=== PATIENT | male | born 1955 ===

== ENCOUNTER 2023-11-12 09:13 | Outpatient (CLI) | payer OTHER | END 2023-11-12 09:14 | disposition home or self-care (01) | LOC: LAB 09:13 | PROVIDERS: ATTEND Urology | DX: R97.20 Elevated prostate specific antigen [PSA] (principal) ==

== ENCOUNTER 2023-11-20 07:12 | Outpatient (CLI) | payer OTHER | END 2023-11-20 07:15 | disposition home or self-care (01) | LOC: SONOGRAMA 07:12 | PROVIDERS: ATTEND Urology | DX: C61 Malignant neoplasm of prostate (principal); N40.1 Benign prostatic hyperplasia with lower urinary tract symptoms; R97.20 Elevated prostate specific antigen [PSA] ==

== ENCOUNTER 2024-03-23 07:45 | Inpatient (IN) | payer OTHER ==
[~2024-03-23] VITALS: Ht 172.7 cm; Wt 74.8 kg
[2024-03-23 08:49] LABS: HEMATOCRIT 46.1 % (39.0-48.0); MEAN CELL VOLUME 85.8 fL (80.0-100.00); MEAN CORPUSCULAR HEMOGLOBIN 29.8 pg (27.00-32.0); MEAN CORPUSCULAR HGB CONC 34.7 g/dl (32.0-36.0); PLATELET COUNT 309 K/uL (150-450); RED BLOOD COUNT 5.37 M/uL (4.00-6.00); RED CELL DISTRIBUTION WIDTH 14.5 % (11.5-14.5)
[2024-03-23] MEDS ORDERED: LOSARTAN POTASS50 MG PO (09:01)
[2024-03-23] MEDS ORDERED: ZOCOR20 MG PO (09:01)
[2024-03-23] MEDS ORDERED: XANAX1 MG PO (09:01)
[2024-03-23] MEDS ORDERED: TAMS0.4C PO (09:02)
[2024-03-23] MEDS ORDERED: LEXAPRO5 MG PO (09:03)
[2024-03-23 09:04] VITALS: BP 116/73
[2024-03-23 09:08] LABS: PH,URINE 5.5 (5.0-8.0); URINE APPEARANCE Clear; URINE BILIRRUBIN Negative (NEGATIVE); URINE BLOOD Negative; URINE COLOR Yellow; URINE GLUCOSE Negative (NEGATIVE); URINE KETONE Trace (NEGATIVE); URINE LEUKOCYTE Negative; URINE NITRATE Negative; URINE PROTEIN Negative (NEGATIVE); URINE UROBILINOGEN 0.2 E.U./dl
[2024-03-23 09:19] LABS: URINE BACTERIA 4.8 uL (0.0-1933); URINE EPITHELIAL CELLS 4.4 uL (0.0-38.8); URINE RBC 4.5 uL (0.0-20.8); URINE WBC 2.6 uL (0.0-23.2)
[2024-03-23 09:25] LABS: URINE CAST 0.29 uL (0.0-1.40)
[2024-03-23 09:29] LABS: INR 1.02; PARTIAL THROMBOPLASTIN TIME 28.9 SECONDS (22.0-34.0); PROTHROMBIN TIME 11.1 SECONDS (9.0-11.5)
[2024-03-23 09:49] LABS: CALCIUM 9.7 mg/dL (8.5-10.1); CREATININE SERUM 1.19 mg/dL (0.70-1.30); GFR 60.61; POTASSIUM 4.94 mEq/L (3.5-5.1)
[2024-03-23 11:39] VITALS: BP 106/67
[2024-03-23 12:45] LABS: RH POSITIVE
[2024-03-25] MEDS ORDERED: ESCITALOPRAM OX10 MG (10:32)
[2024-03-25] MEDS ORDERED: ESTAZOLAM2 MG (10:32)
[2024-03-25] MEDS ORDERED: DICLOFENAC POTA50 MG (10:32)
[2024-03-25] MEDS ORDERED: CIPROFLOXACIN IN 5 % DEXTROSE 400 MG/200 ML PIGGYBAG IV ONE (11:45)
[2024-03-25] MEDS ORDERED: ENOXAPARIN SODIUM 40 MG/0.4 ML SYRINGE SUBCUTANEO ONE (11:45)
[2024-03-25] MEDS ORDERED: SURGIFLO APPLICATOR 1 EACH APPL TOP ONE (13:19)
[2024-03-25] MEDS ORDERED: HEMOSTATIC MATRIX 1 KIT KIT TOP ONE (13:19)
[2024-03-25] MEDS ORDERED: SUGAMMADEX SODIUM 200 MG/2 ML VIAL IV ONE (15:01)
[2024-03-25] MEDS ORDERED: DEXTROSE 5 % AND 0.9 % NACL 1,000 ML IV SCH (15:40)
[2024-03-25] MEDS ORDERED: MORPHINE SULFATE 2 MG/ML CARTRIDGE IV PRN (15:45)
[2024-03-25] MEDS ORDERED: ONDANSETRON HCL 2 MG/ML VIAL IV PRN (15:45)
[2024-03-25] MEDS ORDERED: MORPHINE SULFATE 4 MG/ML VIAL IV ONE ×2 (15:50→16:20)
[2024-03-25] MEDS ORDERED: FAMOtidine 20 MG TABLET PO SCH (17:00)
[2024-03-25] MEDS ORDERED: DOCUSATE SODIUM 100MG CAP PO SCH (17:00)
[2024-03-25] MEDS ORDERED: SIMETHICONE 125 MG CAPSULE PO SCH (17:00)
[2024-03-25 18:00] LABS: HEMATOCRIT 36.6 % (39.0-48.0); HEMOGLOBIN 12.3 g/dL (13-16.00); MEAN CELL VOLUME 87.5 fL (80.0-100.00); MEAN CORPUSCULAR HEMOGLOBIN 29.3 pg (27.00-32.0); MEAN CORPUSCULAR HGB CONC 33.5 g/dl (32.0-36.0); PLATELET COUNT 309 K/uL (150-450); RED BLOOD COUNT 4.19 M/uL (4.00-6.00); RED CELL DISTRIBUTION WIDTH 13.9 % (11.5-14.5)
[2024-03-25] MEDS ORDERED: AMINOCAPROIC ACID 250 MG/ML VIAL IV NR (18:00)
[2024-03-25] MEDS ORDERED: AMINOCAPROIC ACID 250 MG/ML VIAL IV ONE ×2 (18:00→21:45)
[2024-03-25 18:13] LABS: CALCIUM 8.9 mg/dL (8.5-10.1); CREATININE SERUM 1.1 mg/dL (0.70-1.30); GFR 66.37; POTASSIUM 4.66 mEq/L (3.5-5.1)
[2024-03-25 22:29] LABS: HEMATOCRIT 31.9 % (39.0-48.0); HEMOGLOBIN 10.8 g/dL (13-16.00); MEAN CELL VOLUME 86.3 fL (80.0-100.00); MEAN CORPUSCULAR HEMOGLOBIN 29.3 pg (27.00-32.0); PLATELET COUNT 250 K/uL (150-450); RED CELL DISTRIBUTION WIDTH 15.1 % (11.5-14.5)
[2024-03-25] MEDS ORDERED: SODIUM CHLORIDE 0.9% IV STA (22:39)
[2024-03-25] MEDS ORDERED: DESMOPRESSIN ACETATE IV STA (22:39)
[2024-03-25 22:44] LABS: CALCIUM 7.7 mg/dL (8.5-10.1); CREATININE SERUM 0.87 mg/dL (0.70-1.30); POTASSIUM 5.33 mEq/L (3.5-5.1)
[2024-03-25] MEDS ORDERED: AMINOCAPROIC ACID 250 MG/ML VIAL IV SCH (22:45)
[2024-03-26] MEDS ORDERED: FAMOTIDINE/PF 20 MG/2 ML VIAL ONE (00:17)
[2024-03-26] MEDS ORDERED: 0.9 % SODIUM CHLORIDE 1,000 ML IV SCH ×2 (01:00→06:59)
[2024-03-26] MEDS ORDERED: MORPHINE SULFATE 2 MG/ML CARTRIDGE IV ONE (03:30)
[2024-03-26 06:33] LABS: HEMATOCRIT 26.6 % (39.0-48.0); HEMOGLOBIN 9.4 g/dL (13-16.00); MEAN CELL VOLUME 85.1 fL (80.0-100.00); MEAN CORPUSCULAR HEMOGLOBIN 30.1 pg (27.00-32.0); MEAN CORPUSCULAR HGB CONC 35.3 g/dl (32.0-36.0); PLATELET COUNT 207 K/uL (150-450); RED BLOOD COUNT 3.13 M/uL (4.00-6.00)
[2024-03-26] MEDS ORDERED: OxyCODONE HCL/APAP UD (PERCOCET) PO PRN (07:00)
[2024-03-26 07:55] LABS: CALCIUM 7.6 mg/dL (8.5-10.1); CREATININE SERUM 0.8 mg/dL (0.70-1.30); GFR 95.85; POTASSIUM 4.8 mEq/L (3.5-5.1)
[2024-03-26 08:00] VITALS: BP 106/67; O2SAT 95
[2024-03-26] MEDS ORDERED: AMINOCAPROIC ACID 250 MG/ML VIAL IV SCH (09:00)
[2024-03-26] MEDS ORDERED: PANTOPRAZOLE SODIUM 40 MG TABLET.DR PO SCH (09:00)
[2024-03-26] MEDS ORDERED: LOSARTAN POTASSIUM 50 MG TABLET PO SCH (09:00)
[2024-03-26] MEDS ORDERED: CIPROFLOXACIN IN 5 % DEXTROSE 200 ML IV SCH (09:00)
[2024-03-26 16:00] VITALS: BP 106/62; O2SAT 96
[2024-03-26 19:31] LABS: HEMATOCRIT 29.5 % (39.0-48.0); HEMOGLOBIN 10.2 g/dL (13-16.00); MEAN CELL VOLUME 86.2 fL (80.0-100.00); MEAN CORPUSCULAR HEMOGLOBIN 29.9 pg (27.00-32.0); MEAN CORPUSCULAR HGB CONC 34.7 g/dl (32.0-36.0); PLATELET COUNT 195 K/uL (150-450); RED BLOOD COUNT 3.43 M/uL (4.00-6.00); RED CELL DISTRIBUTION WIDTH 15.3 % (11.5-14.5)
[2024-03-26] MEDS ORDERED: ALPRAzolam 1 MG TABLET PO SCH (21:00)
[2024-03-27 02:02] VITALS: BP 119/72; O2SAT 95
[2024-03-27 08:00] VITALS: BP 138/81; O2SAT 95
[2024-03-27] MEDS ORDERED: DESMOPRESSIN ACETATE 4 MCG/ML AMPUL IV SCH (09:00)
[2024-03-27] MEDS ORDERED: AMINOCAPROIC ACID 20 MG/ML ML IV SCH (13:00)
[2024-03-27 13:19] LABS: HEMATOCRIT 33.4 % (39.0-48.0); HEMOGLOBIN 11.6 g/dL (13-16.00); MEAN CELL VOLUME 84.4 fL (80.0-100.00); MEAN CORPUSCULAR HEMOGLOBIN 29.4 pg (27.00-32.0); MEAN CORPUSCULAR HGB CONC 34.8 g/dl (32.0-36.0); PLATELET COUNT 194 K/uL (150-450); RED BLOOD COUNT 3.95 M/uL (4.00-6.00); RED CELL DISTRIBUTION WIDTH 15.5 % (11.5-14.5)
[2024-03-27] MEDS ORDERED: LOSARTAN POTASSIUM 50 MG TABLET PO NR (14:30)
[2024-03-27 14:32] LABS: BILIRUBIN TOTAL 0.8 mg/dL (0.3-1.2); CALCIUM 8.2 mg/dL (8.5-10.1); CREATININE SERUM 0.81 mg/dL (0.70-1.30); GFR 94.48; GLOBULINA 2.6 G/DL (2.4-3.5); POTASSIUM 3.85 mEq/L (3.5-5.1); TOTAL PROTEIN 5.6 gm/dL (6.4-8.2)
[2024-03-27 16:00] VITALS: BP 138/76; O2SAT 95
[2024-03-28 01:21] VITALS: BP 136/80; O2SAT 95
[2024-03-28 07:00] LABS: HEMATOCRIT 30.1 % (39.0-48.0); HEMOGLOBIN 10.7 g/dL (13-16.00); MEAN CELL VOLUME 83.4 fL (80.0-100.00); MEAN CORPUSCULAR HEMOGLOBIN 29.7 pg (27.00-32.0); MEAN CORPUSCULAR HGB CONC 35.6 g/dl (32.0-36.0); PLATELET COUNT 191 K/uL (150-450); RED BLOOD COUNT 3.61 M/uL (4.00-6.00); RED CELL DISTRIBUTION WIDTH 15.3 % (11.5-14.5)
[2024-03-28 07:36] LABS: CALCIUM 7.9 mg/dL (8.5-10.1); CREATININE SERUM 0.68 mg/dL (0.70-1.30); GFR 115.62; POTASSIUM 3.75 mEq/L (3.5-5.1)
[2024-03-28 08:00] VITALS: BP 156/82; O2SAT 94
[2024-03-28] MEDS ORDERED: SODIUM CHLORIDE 0.45 % 1,000 ML IV SCH (09:00)
[2024-03-28] MEDS ORDERED: LOSARTAN POTASSIUM 50 MG TABLET PO SCH (09:00)
[2024-03-28] MEDS ORDERED: FOLIC ACID 1 MG TABLET PO NR (13:00)
[2024-03-28] MEDS ORDERED: Cyanocobalamin/Mecobalamin 1 TAB.SL SL NR (13:00)
[2024-03-28] MEDS ORDERED: IRON FUM,PS/FOLIC/BCOMP,C NO.9 1 CAP CAPSULE PO NR (13:00)
[2024-03-28 16:00] VITALS: BP 174/87; O2SAT 98
[2024-03-28] MEDS ORDERED: ENALAPRILAT DIHYDRATE 1.25 MG/ML VIAL IV PRN (17:30)
[2024-03-28 19:00] VITALS: BP 161/76; BP 166/82
[2024-03-29] VITALS: BP 159/82; O2SAT 96
[2024-03-29 07:43] LABS: HEMATOCRIT 33.5 % (39.0-48.0); HEMOGLOBIN 11.9 g/dL (13-16.00); MEAN CELL VOLUME 83.4 fL (80.0-100.00); MEAN CORPUSCULAR HEMOGLOBIN 29.7 pg (27.00-32.0); MEAN CORPUSCULAR HGB CONC 35.7 g/dl (32.0-36.0); PLATELET COUNT 260 K/uL (150-450); RED BLOOD COUNT 4.02 M/uL (4.00-6.00); RED CELL DISTRIBUTION WIDTH 14.9 % (11.5-14.5)
[2024-03-29 08:00] VITALS: BP 159/77
[2024-03-29] MEDS ORDERED: IRON FUM,PS/FOLIC/BCOMP,C NO.9 1 CAP CAPSULE PO SCH (09:00)
[2024-03-29] MEDS ORDERED: FOLIC ACID 1 MG TABLET PO SCH (09:00)
[2024-03-29] MEDS ORDERED: Cyanocobalamin/Mecobalamin 1 TAB.SL SL SCH (09:00)
[2024-03-29 16:00] VITALS: BP 154/82; O2SAT 98
[2024-03-30 00:53] VITALS: BP 157/82
== END 2024-03-30 10:46 | disposition home or self-care (01) | DRG 707 ==
LOC: O/R 03-25 05:25 → SURH 03-25 07:00 → SURG 03-25 16:19
PROVIDERS: ADMIT Urology; ATTEND Urology
PROC: 8E0W4CZ Robotic Assisted Procedure of Trunk Region, Percutaneous Endoscopic Approach (ICD-10-PCS; 2024-03-25)
PROC: 30233N1 Transfusion of Nonautologous Red Blood Cells into Peripheral Vein, Percutaneous Approach (ICD-10-PCS; 2024-03-25)
PROC: 0VT04ZZ Resection of Prostate, Percutaneous Endoscopic Approach (ICD-10-PCS; principal; 2024-03-25 07:00)
DX: C61 Malignant neoplasm of prostate (principal); D62 Acute posthemorrhagic anemia; L76.22 Postprocedural hemorrhage of skin and subcutaneous tissue following other procedure; I95.81 Postprocedural hypotension; Y83.8 Other surgical procedures as the cause of abnormal reaction of the patient, or of later complication, without mention of misadventure at the time of the procedure